=== PATIENT | male | born 1980 | race African-American/Black ===

== ENCOUNTER 2019-04-03 18:45 | Emergency (ER) | payer BC ==
[~2019-04-03] VITALS: Ht 175.3 cm; Wt 96.0 kg
[2019-04-03] MEDS ORDERED: IBUPROFEN 600MG TABLET PO ONE (20:00)
[2019-04-03 20:39] VITALS: BP 125/89
== END 2019-04-03 20:40 | disposition home or self-care (01) ==
LOC: ER 18:45
DX: M20.012 Mallet finger of left finger(s) (principal); F17.200 Nicotine dependence, unspecified, uncomplicated; W21.09XA Struck by other hit or thrown ball, initial encounter; Y93.6A Activity, physical games generally associated with school recess, summer camp and children; Y92.89 Other specified places as the place of occurrence of the external cause; Y99.8 Other external cause status
CPT/HCPCS: 29130; 73140; 99283